=== PATIENT | female | born 1985 | race Caucasian/White ===

== ENCOUNTER 2022-08-13 10:50 | Outpatient (CLI) | payer OTHER, SELFPAY | END 2022-08-13 10:51 | disposition home or self-care (01) | PROVIDERS: PCP Family Medicine; Visit Provider Family Medicine | DX: R19.7 Diarrhea, unspecified (principal) | CPT/HCPCS: 80053; 84443; 87086; 87186 ==

== ENCOUNTER 2022-08-14 08:00 | Outpatient (CLI) | payer OTHER, SELFPAY | END 2022-08-14 08:01 | disposition home or self-care (01) | LOC: NFLDREF 08-16 13:46 | PROVIDERS: PCP Family Medicine; Referring Provider Family Medicine; Visit Provider Family Medicine | DX: R10.9 Unspecified abdominal pain (principal); R19.7 Diarrhea, unspecified | CPT/HCPCS: 87493 ==

== ENCOUNTER 2022-08-21 11:34 | Outpatient (CLI) | payer OTHER, SELFPAY | END 2022-08-21 11:35 | disposition home or self-care (01) | LOC: NFLDREF 08-23 01:41 | PROVIDERS: PCP Family Medicine; Referring Provider Family Medicine; Visit Provider Family Medicine | DX: Z11.3 Encounter for screening for infections with a predominantly sexual mode of transmission (principal) | CPT/HCPCS: 86703 ==